=== PATIENT | female | born 1975 | race Two or more races ===

== ENCOUNTER → 2020-04-05 | Outpatient (CLI) | payer OTHER ==
--- NOTE | 2020-04-05 11:18 | DEXAMM ---
INDICATION: PAIN IN JOINTS,PLEASE EVALUATE. COMPARISON: None. TECHNIQUE: Bone density was measured using dual-energy x-ray absorptionmetry (DEXA). FINDINGS: AP SPINE L1-L4 BMD 1.047 g/cm2 Young Adult T-Score -1.2 Age Matched Z-Score -1.1. LT FEMUR, TOTAL BMD 0.961 g/cm2 Young Adult T-Score -0.4 Age Matched Z-Score -0.1. LT NECK BMD 0.991 g/cm2 Young Adult T-Score -0.3 Age Matched Z-Score 0.3. RT FEMUR, TOTAL BMD 1.002 g/cm2 Young Adult T-Score 0.0 Age Matched Z-Score 0.3. RT NECK BMD 1.027 g/cm2 Young Adult T-Score -0.1 Age Matched Z-Score 0.5. IMPRESSION: There is low bone density of the spine. There is normal bone density of the left hip. There is normal bone density of the right hip. FOLLOW-UP: Recommendation for the next bone density exam: 2 years. <Electronically signed by Austin Monzon > 04/05/20 [id number]
== END ==
LOC: M WHC 09:40
PROVIDERS: ATTEND Emergency Medicine
DX: M25.549 Pain in joints of unspecified hand (principal)